=== PATIENT | female | born 1985 | race African-American/Black ===

== ENCOUNTER 2017-04-22 15:56 | Emergency (ER) | payer MEDICAID ==
--- NOTE | 2017-04-22 17:14 | EDM.PDOC ---
ED HPI GENERAL MEDICAL PROBLEM - General Chief Complaint: Lower Extremity Injury/Pain Stated Complaint: FELL HURT LEFT HIP AND KNEE Time Seen by Provider: 04/22/17 17:00 Source of Information: Reports: Patient History Limitations: Reports: No Limitations - History of Present Illness INITIAL COMMENTS - FREE TEXT/NARRATIVE: Patient is a 31-year-old female who presents to the ED complaining of left posterior pelvis pain. Patient states she fell this past Sunday landing on the affected side. She was able to get up and walk on her own accord with increasing pain noted to the posterior aspect of her hip. States since then she' s noticing increasing pain with weightbearing while at work. In addition injured her left knee. States she had some mild swelling to the left knee that has subsided. States most times she is able to ambulate without a limp until later in the day when the pain gets worse. Currently denies any bruising, swelling, wounds, numbness or tingling to extremities, saddle anesthesia, or incontinence to urine or stool, or any additional complaints. 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 ED EXAM, GENERAL - Physical Exam Exam: See Below Exam Limited By: No Limitations General Appearance: Alert, WD/WN, No Apparent Distress Ears: Hearing Grossly Normal Throat/Mouth: Normal Voice, No Airway Compromise Neck: Normal Inspection, Supple Respiratory/Chest: No Respiratory Distress, No Accessory Muscle Use Cardiovascular: Normal Peripheral Pulses, Regular Rate, Rhythm Peripheral Pulses: 2+: Radial (L) Extremities: Normal Inspection, Normal Range of Motion, No Pedal Edema, Normal Capillary Refill, Other (Mild discomfort noted with ambulation. On palpation of the left SI joint increasing pain noted. No swelling, bruising, wounds, or bony abnormalities present. Left knee did not reveal any swelling or bony abnormalities. Full range of motion per patient. No pain with weightbearing.) Neurological: Alert, Oriented, CN II-XII Intact, Normal Cognition, No Motor/ Sensory Deficits. No: Normal Gait Psychiatric: Normal Affect, Normal Mood Skin Exam: Warm, Dry, Intact, Normal Color Course - Vital Signs Last Recorded V/S: Last Vital Signs Temp 98.5 F 04/22/17 16:32 Pulse 88 04/22/17 16:32 Resp 18 04/22/17 16:32 BP 158/79 H 04/22/17 16:32 Pulse Ox 100 04/22/17 16:32 - Orders/Labs/Meds Orders: Active Orders 24 hr Category Date Time Status Pelvis 1V or 2V [CR] Stat Exams 04/22/17 17:04 Taken - Re-Assessments/Exams Free Text/Narrative Re-Assessment/Exam: Ordered x-ray of the left pelvis. X-ray of the pelvis reviewed with Dr. Landrum with no acute bony abnormalities noted. Final interpretation pending. Etiology current complaint is most likely contusion with possible sacroiliitis. Will discharge home with instructions as documented. Departure - Departure Time of Disposition: 18:22 Disposition: Home, Self-Care 01 Condition: Good Clinical Impression: Sacroiliac joint pain, Multiple contusions - Discharge Information Instructions: Contusion, [id number], Joint Pain, [id number] Referrals: Melissa Edmonds UNDERWRITING CONSULTANT [Nurse Practitioner] - Forms: ED Department Discharge, ED Return to Work/School Form Additional Instructions: As discussed x-ray of the pelvis did not reveal any acute bony abnormalities. Final interpretation is pending. Discomfort etiology most likely related to contusions suffered from the fall. Treatment is refraining from any activities that cause worsening pain. Ice to affected area 3 times a day, 30 minutes in duration, do not apply ice directly on the skin. Tylenol and ibuprofen in alternating fashion for pain. Follow-up with a provider at the [facility] in [place] in the next week or so if symptoms have not drastically improved. Return to the ED as needed for any new or worsening symptoms. - My Orders Last 24 Hours: My Active Orders 04/22/17 17:04 Pelvis 1V or 2V [CR] Stat - Assessment/Plan Last 24 Hours: My Active Orders 04/22/17 17:04 Pelvis 1V or 2V [CR] Stat
--- NOTE | 2017-04-24 11:40 | CR ---
Pelvis: AP view of the pelvis was obtained. Comparison: No prior study. Joint spaces within both hips are maintained. Sacroiliac joints are also within normal limits. No discrete fracture or other bony abnormality is seen. Impression: 1. Nothing acute is identified on AP pelvis study. Diagnostic code #1
== END 2017-04-22 18:45 | disposition home or self-care (01) ==
LOC: JD.ED 15:56
DX: S30.0XXA Contusion of lower back and pelvis, initial encounter (principal); Z79.899 Other long term (current) drug therapy; W19.XXXA Unspecified fall, initial encounter
CPT/HCPCS: 72170; 72170-26; 99283

== ENCOUNTER 2018-10-26 03:58 | Emergency (ER) | payer MEDICAID, OTHER ==
--- NOTE | 2018-10-26 04:26 | EDM.PDOC ---
ED HPI GENERAL MEDICAL PROBLEM - General Chief Complaint: Upper Extremity Injury/Pain Stated Complaint: RIGHT HAND SMASHED IN A DOOR Time Seen by Provider: 10/26/18 04:12 Source of Information: Reports: Patient, RN Notes Reviewed History Limitations: Reports: No Limitations - History of Present Illness INITIAL COMMENTS - FREE TEXT/NARRATIVE: The patient states that she punched a door with her right fist around 03:00 this morning. She presents with pain and swelling to the dorsal aspect of her hand. She denies tingling or numbness to any of her fingers. No prior right hand injury. She is otherwise uninjured. The patient states that she has been drinking tonight, but not excessively. The patient's PCP is Amy Hendrickson. Right Hand Pain Score (Numeric/FACES): 10 - Related Data Allergies Allergy/AdvReac Type Severity Reaction Status Date / Time shellfish derived Allergy Hives Verified 03/05/18 20:06 Home Meds: Home Meds . [No Known Home Meds] 03/05/18 [History] Past Medical History Cardiovascular History: Reports: High Cholesterol (untreated) Endocrine/Metabolic History: Reports: Hyperthyroidism (untreated) Social & Family History - Tobacco Use Smoking Status *Q: Never Smoker Second Hand Smoke Exposure: No - Caffeine Use Caffeine Use: Reports: Coffee - Alcohol Use Alcohol Use History: Yes Days Per Week of Alcohol Use: 1 Number of Drinks Per Day: 3 Total Drinks Per Week: 3 Alcohol Use Frequency: Socially - Recreational Drug Use Recreational Drug Use: Yes Drug Use in Last 12 Months: Yes Recreational Drug Type: Reports: Marijuana/Hashish (last smoked 2017) - Living Situation & Occupation Living situation: Reports: Single, with Family (2 kids) Occupation: Employed (Daycare) Review of Systems - Review of Systems Review Of Systems: ROS reveals no pertinent complaints other than HPI. ED EXAM, GENERAL - Physical Exam Exam: See Below Exam Limited By: No Limitations General Appearance: Alert, WD/WN, No Apparent Distress Extremities: Other (There is significant swelling to the dorsal aspect of the patient's right hand, centered over the fourth MCP joint, extending over the fourth metacarpal bone. The extent of the swelling extends to the third and fifth MCP joints. Her tenderness is felt primarily over the fourth MCP joint. No other visible abnormalities, such as erythema, ecchymosis, abrasion, or laceration. She denies tingling or numbness to any of her fingers, and she is able to move her fingers freely, although with some pain. Neurovascular status of the right upper extremity is intact.) Course - Vital Signs Last Recorded V/S: Last Vital Signs Temp 36.2 C 10/26/18 04:05 Pulse 85 10/26/18 04:05 Resp 15 10/26/18 04:05 BP 130/80 10/26/18 04:05 Pulse Ox 100 10/26/18 04:05 - Orders/Labs/Meds Orders: Active Orders 24 hr Category Date Time Status Hand Comp Min 3V Rt [CR] Stat Exams 10/26/18 04:13 Ordered - Re-Assessments/Exams Free Text/Narrative Re-Assessment/Exam: 10/26/18 04:26 4-view radiographs of the right hand appear to be normal. No fracture or dislocation identified. Formal read per the radiologist. I will recommend that the patient apply an ice pack to the hand is much as possible over the next couple of days, to help minimize swelling, along with elevation. She should take [id number] ibuprofen as needed for discomfort. Departure - Departure Time of Disposition: 04:27 Disposition: Home, Self-Care 01 Condition: Good Clinical Impression: Contusion of right hand - Discharge Information *PRESCRIPTION DRUG MONITORING PROGRAM REVIEWED*: Not Applicable *COPY OF PRESCRIPTION DRUG MONITORING REPORT IN PATIENT BRUCE: Not Applicable Referrals: Amy Hendrickson PA-C [Primary Care Provider] - Forms: ED Department Discharge Additional Instructions: You were seen in the emergency room for right hand pain after punching a door. Workup in the ER included x-rays of your right hand, which returned normal. No broken bones or dislocations were found. Based on your history, physical exam, and x-rays, you have most likely contused (bruised) your right hand. We recommend that you apply an ice pack to the back of your right hand, and elevate the right hand, as much as possible over the next 2 days, to help minimize swelling. Take [id number] ibuprofen, 2-3 tablets (400 - 600 mg) every 8 hours, with food, as needed for discomfort. Follow-up with your PCP, CHIKIS Marquez, as needed. If any other problems, please do not hesitate to return to the ER. - My Orders Last 24 Hours: My Active Orders 10/26/18 04:13 Hand Comp Min 3V Rt [CR] Stat - Assessment/Plan Last 24 Hours: My Active Orders 10/26/18 04:13 Hand Comp Min 3V Rt [CR] Stat
--- NOTE | 2018-10-28 10:17 | CR ---
Right hand: Four views of the right hand were obtained. Comparison: No prior hand study. Soft tissue swelling is identified. No fracture, dislocation or other bony abnormality is seen. Impression: 1. Soft tissue swelling. 2. No acute bony abnormality is appreciated. Diagnostic code #2
== END 2018-10-26 04:36 | disposition home or self-care (01) ==
LOC: JD.ED 03:58
DX: S60.221A Contusion of right hand, initial encounter (principal); E78.00 Pure hypercholesterolemia, unspecified; E05.90 Thyrotoxicosis, unspecified without thyrotoxic crisis or storm; W22.8XXA Striking against or struck by other objects, initial encounter; Z91.013 Allergy to seafood
CPT/HCPCS: 73130-26-RT; 73130-RT; 99282; 99283-25

== ENCOUNTER 2021-11-30 17:59 | Emergency (ER) | payer MEDICAID, OTHER ==
[2021-11-30] MEDS ORDERED: Cephalexin 500 MG Cap PO ONE (19:31)
== END 2021-11-30 19:40 | disposition home or self-care (01) ==
LOC: JD.ED 17:59
DX: L03.90 Cellulitis, unspecified (principal); Z91.013 Allergy to seafood; Z86.16 Personal history of COVID-19
CPT/HCPCS: 99283; A9270

== ENCOUNTER 2022-06-08 06:14 | Emergency (ER) | payer SELFPAY ==
[2022-06-08] MEDS ORDERED: Sodium Chloride 0.9% 10 ML Syringe FLUSH PRN (07:08)
[2022-06-08 07:24] LABS: ESTIMATED GFR 84 mL/min (>60)
[2022-06-08] MEDS ORDERED: Ketorolac 15 MG/ML SDV IVPUSH ONE (07:24)
[2022-06-08] MEDS ORDERED: HYDROmorphone 1 MG/ML Syringe IVPUSH ONE (07:25)
[2022-06-08] MEDS ORDERED: Sodium Chloride 0.9% 1,000 ML IV ONE (07:26)
[2022-06-08] MEDS ORDERED: Sodium Chloride 0.9% 10 ML Syringe FLUSH ONE (08:03)
[2022-06-08] MEDS ORDERED: Iopamidol 612 MG/ML 50 ML SDV IVPUSH ONE (08:03)
[2022-06-08] MEDS ORDERED: Iopamidol 612 MG/ML 100 ML Bottle IVPUSH ONE (08:03)
[2022-06-08] MEDS ORDERED: Polyethylene Glycol 3350 Powder 17 GM Packet PO ONE (09:23)
== END 2022-06-08 09:50 | disposition home or self-care (01) ==
LOC: JD.ED 06:14
DX: R10.32 Left lower quadrant pain (principal); Z91.013 Allergy to seafood
CPT/HCPCS: 36415; 74177; 80053; 81003; 81025; 83690; 83735; 85025; 86140; 96361; 96374; 96375; 99284; A9270; J1170; J1885; J3490; J7030; Q9967

== ENCOUNTER 2022-08-26 21:07 | Emergency (ER) | payer SELFPAY ==
[2022-08-26] MEDS ORDERED: diphenhydrAMINE 50 MG/ML SDV IVPUSH ONE (21:27)
[2022-08-26] MEDS ORDERED: methylPREDNISolone Sodium Succinate 125 MG/2 ML SDV IVPUSH ONE (21:27)
[2022-08-26] MEDS ORDERED: Sodium Chloride 0.9% 10 ML Syringe FLUSH PRN (21:29)
[2022-08-26 22:01] LABS: CORONAVIRUS COVID-19 NAA NEGATIVE (NEGATIVE)
== END 2022-08-26 22:40 | disposition home or self-care (01) ==
LOC: JD.ED 21:07
DX: R50.9 Fever, unspecified (principal); L50.9 Urticaria, unspecified; Z91.013 Allergy to seafood; Z86.16 Personal history of COVID-19; Z20.822 Contact with and (suspected) exposure to COVID-19
CPT/HCPCS: 0241U; 36415; 80053; 84443; 85025; 96374; 96375; 99283; J1200; J2930; J3490

== ENCOUNTER 2024-03-10 08:27 | Emergency (ER) | payer SELFPAY ==
[2024-03-10] MEDS ORDERED: Sodium Chloride 0.9% 10 ML Syringe FLUSH PRN (10:34)
[2024-03-10] MEDS: Sodium Chloride 0.9% 10 ML Syringe FLUSH PRN (11:07)
[2024-03-10] MEDS: Sodium Chloride 0.9% 1,000 ML IV ONE (11:07)
[2024-03-10] MEDS: Ketorolac 15 MG/ML SDV IVPUSH ONE (11:07)
[2024-03-10 11:27] LABS: BASOPHILS PERCENT AUTO 0.4 % (0.0-1.0); EOSINOPHILS ABSOLUTE AUTO 0.1 K/mm3 (0.0-0.4); EOSINOPHILS PERCENT AUTO 1.1 % (0.0-6.0); HEMATOCRIT 39.2 % (37.0-47.0); HEMOGLOBIN 13.7 gm/dl (12.0-16.0); IMMATURE GRAN ABSOLUTE AUTO 0.04 K/mm3 (0.00-0.05); IMMATURE GRAN PERCENT AUTO 0.4 % (0.0-0.4); LYMPHOCYTES ABSOLUTE AUTO 2.7 K/mm3 (1.0-4.8); LYMPHOCYTES PERCENT AUTO 26.8 % (24.0-44.0); MEAN CORPUSCULAR HEMOGLOBIN 28.9 pg (28.0-32.0); MEAN CORPUSCULAR HGB CONC 34.9 g/dl (32.0-36.0); MEAN CORPUSCULAR VOLUME 82.7 fl (83.0-99.0); MONOCYTES ABSOLUTE AUTO 0.7 K/mm3 (0.0-0.8); MONOCYTES PERCENT AUTO 7.1 % (0.0-8.0); NEUTROPHILS ABSOLUTE AUTO 6.5 K/mm3 (1.8-7.7); NEUTROPHILS PERCENT AUTO 64.2 % (41.0-71.0); PLATELET COUNT,PLT 194 K/mm3 (150-400); RED BLOOD CELL COUNT 4.74 M/mm3 (4.10-5.30)
[2024-03-10 11:28] LABS: APPEARANCE,URINE CLEAR (Clear); BILIRUBIN,URINE NEGATIVE (Negative); COLOR,URINE YELLOW (Yellow); GLUCOSE,URINE NEGATIVE (Negative); KETONES,URINE NEGATIVE (Negative); LEUKOCYTE ESTERASE,URINE NEGATIVE (Negative); NITRITE,URINE NEGATIVE (Negative); OCCULT BLOOD,URINE NEGATIVE (Negative); PROTEIN,URINE NEGATIVE (Negative); UROBILINOGEN,URINE 0.2 (0.2-1.0)
[2024-03-10 12:00] LABS: ALBUMIN 3.6 g/dl (3.4-5.0); ANION GAP 15.2 (5-15); BILIRUBIN TOTAL 0.4 mg/dL (0.2-1.0); BUN/CREATININE RATIO 11.4 (14-18); CALCIUM 8.6 mg/dL (8.5-10.1); CREATININE 0.7 mg/dL (0.55-1.02); EST CRCL DRUG DOSING (CG) 92.25 mL/min; PROTEIN TOTAL,TP 7.1 g/dl (6.4-8.2)
[2024-03-10 12:03] LABS: POTASSIUM,K 4.2 mEq/L (3.5-5.1)
[2024-03-10] MEDS: Iopamidol 612 MG/ML 100 ML Bottle IVPUSH ONE (12:07)
[2024-03-10 12:10] LABS: SLIDE REVIEW ABNORMAL SMEAR
== END 2024-03-10 15:35 | disposition home or self-care (01) ==
LOC: JD.ED 08:27
DX: R10.9 Unspecified abdominal pain (principal); M25.552 Pain in left hip; Z86.16 Personal history of COVID-19; Z91.013 Allergy to seafood
CPT/HCPCS: 36415; 73552; 74177; 76830; 80053; 81003; 84703; 85025; 96374; 99284; J1885; J3490; J7030; Q9967